=== PATIENT | female | born 1945 | race African-American/Black ===

== ENCOUNTER → 2019-04-22 | Outpatient (CLI) | payer MEDICARE, BC, OTHER ==
--- NOTE | 2019-04-22 13:50 | CARDNUC ---
[place] [address] CARDIAC NUCLEAR IMAGING REPORT Name: SCARLET GUZMAN Room: [facility]#: [id number] Admission: 04/22/19 Attend Phys: Ira Soni, Discharge: Date of : 43 Date of Service: 04/22/19 1350 Report #: [id number] THIS REPORT FOR: //name// APPROVED REPORT Study performed: 04/22/2019 10:16:26 Exam: Nuclear Stress Test Indication: Chest pain, Dyspnea Patient Location: Out-Patient Stress Tech: Connie Bar Stress Nurse: Bia Kincaid RN NM Tech:JA Jasso Ht: 5 ft 7 in Wt: 209 lbs BSA: 2.06 m2 BMI: 32.73 Medical History Medical History: cabg, cad, stents in legs, hyperlipidemia, hypertension, pvd, dm Medications: atorvastatin, lasix, irbesartan. xarelto, maxide, toprol Allergies: nkda Cardiac Risk Factors: age, hyperlipidemia, hypertension, dibetes, former tobacco Previous Cardiac Procedures: cabg Exercise History: Physically active Meds Held (24 hrs): metoprolol Stress Test Details Stress Test: Pharmacologic stress testing performed using 0.4 mg of regadenoson per 5 mL given IV over 10 seconds. Reason for pharmacologic stress test: a fib. HR Resting HR: 113 bpm Max Heart Rate (APMHR): 146 bpm Max HR Achieved: 132 bpm Target HR (85% APMHR): 124 bpm % of APMHR: 90 Recovery HR: 125 bpm BP Resting BP: 151/95 mmHg Max BP: 171/[place] [address] CARDIAC NUCLEAR IMAGING REPORT Name: SCARLET GUZMAN Room: [facility]#: [id number] Admission: 04/22/19 Attend Phys: Ira Soni, Discharge: Date of : 43 Date of Service: 04/22/19 1350 Report #: [id number] ECG Resting ECG: Atrial Fibrillation Stress ECG: Atrial Fibrillation ST Change: None Recovery ECG: Atrial Fibrillation Recovery ST Change: None Clinical Reason for Termination: Completed protocol Exercise duration: 0 min sec Exercise capacity: 1 METs The patient tolerated Lexiscan infusion without significant cardiac symptoms. Stress ECG Conclusion The baseline 12-lead EKG shows atrial fibrillation without significant ST abnormality. EKGs obtained during and post Lexiscan infusion showed persistent atrial fibrillation with no significant ST segment changes when compared to baseline. NM EXAM: Myocardial Perfusion REST/STRESS Imaging Protocol: Rest Tc-99m/Stress Tc-99m 1 day Resting Data Rest SPECT myocardial perfusion imaging was performed in supine position 30 minutes following the intravenous injection of 11.0 mCi of Tc-99m Sestamibi. Time of rest injection: 0820 Date: 04/22/2019 The images were gated to evaluate regional wall motion and calculate left ventricular ejection fraction. Administration Route: IV Administration Site: Right AC Pharmacologic Stress Pharmacologic stress test was performed by injecting Regadenoson 0.4 mg IV push followed by the intravenous injection of 31.3 mCi of Tc-99m Sestamibi. Time of stress injection: 1020 Date: 04/22/2019 Administration Route: IV Administration Site: Right AC Gated Stress SPECT was performed 40 minutes after stress injection. The images were gated to evaluate regional wall motion and calculate left ventricular ejection fraction. [place] [address] CARDIAC NUCLEAR IMAGING REPORT Name: SCARLET GUZMAN Room: [facility]#: [id number] Admission: 04/22/19 Attend Phys: Ira Soni, Discharge: Date of : 43 Date of Service: 04/22/19 1350 Report #: [id number] Study Quality Study: Good Artifact: Mild Breast artifact Study Data At rest, the left ventricular ejection fraction was 38%.. Post stress, the left ventricular ejection was 40%.. TID = 0.94. Perfusion There is a moderate sized moderate to severe in intensity defect involving the distal and apical portions of the anteroseptal wall that appears fixed and consistent with prior infarct. No significant reversible defects were noted. Wall Motion There is a septal wall motion abnormality noted consistent with prior bypass procedure. There is hypokinesis of the distal anteroseptal wall and portions of the apex. There is moderate left ventricular systolic dysfunction. Nuclear Conclusion ECG Findings: negative for ischemia Clinical Findings: negative for ischemia Nuclear Findings: negative for ischemia Exercise Capacity: not assessed Left Ventricular Function: abnormal Perfusion images suggest prior infarct involving the distal portion the inferoseptal wall. No significant reversible defects were identified. Global LV systolic function appears moderately decreased. This is a not a high risk study. <Conclusion> The baseline 12-lead EKG shows atrial fibrillation without significant ST abnormality. EKGs obtained during and post Lexiscan infusion showed persistent atrial fibrillation with no significant ST segment changes when compared to baseline. <ELECTRONICALLY SIGNED> By: Anibal Edmonds MD, FACC 04/22/19 1350 1350 1350 Anibal Edmonds MD, FACC /INF
== END ==
LOC: M.NUC 03-25 17:24
DX: I25.10 Atherosclerotic heart disease of native coronary artery without angina pectoris (principal); I48.91 Unspecified atrial fibrillation; R07.89 Other chest pain; E78.5 Hyperlipidemia, unspecified; I10 Essential (primary) hypertension; E11.51 Type 2 diabetes mellitus with diabetic peripheral angiopathy without gangrene; Z95.1 Presence of aortocoronary bypass graft; Z79.899 Other long term (current) drug therapy